=== PATIENT | female | born 1990 | race Caucasian/White ===

== ENCOUNTER 2019-09-22 20:32 | Emergency (ER) | payer SELFPAY ==
[~2019-09-22] VITALS: Ht 165.1 cm; Wt 59.0 kg
[2019-09-22 20:37] VITALS: Ht 165.1 cm; Wt 59.0 kg
[2019-09-22 22:04] VITALS: BP 128/80
== END 2019-09-22 22:04 | disposition left against medical advice (07) ==
LOC: ED 20:32
DX: T40.4X1A Poisoning by other synthetic narcotics, accidental (unintentional), initial encounter (principal); F17.210 Nicotine dependence, cigarettes, uncomplicated; Z98.890 Other specified postprocedural states; Z73.89 Other problems related to life management difficulty; Y92.89 Other specified places as the place of occurrence of the external cause
CPT/HCPCS: G0480